=== PATIENT | male | born 1955 | race Caucasian/White ===

== ENCOUNTER 2021-10-06 09:40 | Outpatient (CLI) | payer MEDICARE | END 2021-10-06 09:41 | disposition home or self-care (01) | LOC: CSHRAD 09:40 | PROVIDERS: ATTEND Internal Medicine | DX: M25.552 Pain in left hip (principal); M16.12 Unilateral primary osteoarthritis, left hip ==

== ENCOUNTER 2024-01-06 08:51 | Outpatient (CLI) | payer MEDICARE | END 2024-01-06 08:52 | disposition home or self-care (01) | LOC: CSHULT 08:51 | PROVIDERS: ATTEND Internal Medicine | DX: R17 Unspecified jaundice (principal); K76.0 Fatty (change of) liver, not elsewhere classified | CPT/HCPCS: 76705 ==